=== PATIENT | female | born 1990 | race Caucasian/White ===

== ENCOUNTER 2019-04-26 14:35 | Inpatient (IN) | payer OTHER ==
[~2019-04-26] VITALS: Ht 162.6 cm; Wt 61.7 kg
--- NOTE | 2019-04-26 15:00 | NUR ---
[id number], from home, hyperventilating, anxious, took lorazepam 1 mg 30mins BUFFER CHROME and not helping per patient. PT AAOX4, VSS. RR EVEN & UNLABORED. DENIES CP, SOB, DIZZINESS, N/V @ THIS TIME. AWAITING EVAL BY ERMD & WILL CONT TO MONITOR.
[2019-04-26] MEDS ORDERED: LORAZEPAM INJ 2 MG/ML VIAL IV ONE (16:30)
[2019-04-26] MEDS ORDERED: LORAZEPAM INJ 2 MG/ML VIAL ONE (16:32)
--- NOTE | 2019-04-26 16:45 | NUR ---
MEDICATED ORDERED PER ERMD ORDER, PT TERRY WELL. WARDROBE COORDINATOR @ BS FOR EVAL.
--- NOTE | 2019-04-26 18:20 | NUR ---
PT SITTING UP ON HER LAPTOP RR EVEN & UNLABORED. DENIES CP, SOB, DIZZINESS, N/V @ THIS TIME & WILL CONT TO MONITOR.
[2019-04-26] MEDS ORDERED: CT SWABBABLE VALVE TRANS SET 1 EA INFUS.SET MC ONE (19:29)
[2019-04-26] MEDS ORDERED: IOHEXOL-350 100 ML VIAL IV ONE (19:29)
[2019-04-26] MEDS ORDERED: IV NS 0.9% 250 ML IV ONE (19:30)
[2019-04-26 19:49] LABS: CALCIUM, SERUM 9.3 mg/dL (8.5-10.1); CREATININE 0.7 mg/dL (0.6-1.3); POTASSIUM 3.8 mmol/L (3.5-5.1)
[2019-04-26 19:54] LABS: ALANINE AMINOTRANSFERASE 57 U/L (12-78); ALBUMIN 4.5 g/dL (3.4-5.0); ALKALINE PHOSPHATASE 73 U/L (46-116); ASPARTATE AMINOTRANSFERASE 23 U/L (15-37); BILIRUBIN,DIRECT 0.1 mg/dL (0.0-0.2); BILIRUBIN,TOTAL 0.5 mg/dL (0.2-1.0); TOTAL PROTEIN, SERUM 8.2 g/dL (6.4-8.2)
[2019-04-26 20:20] LABS: BASOPHILS # (AUTO) 0.1 /CMM (0.0-0.2); BASOPHILS % (AUTO) 0.8 % (0.0-2.0); HEMATOCRIT 44 % (33-45); HEMOGLOBIN 14.7 g/dL (11.5-14.8); LYMPHOCYTES # (AUTO) 2.2 /CMM (0.8-4.8); LYMPHOCYTES % (AUTO) 24.5 % (20.0-44.0); MEAN CORPUSCULAR HGB CONC 33 g/dl (31.0-36.0); MEAN CORPUSCULAR VOLUME 87 fL (82-100); MONOCYTES # (AUTO) 0.6 /CMM (0.1-1.30); MONOCYTES % (AUTO) 6.9 % (2.0-12.0); NEUTROPHILS % (AUTO) 66.8 % (43.0-81.0); PLATELET COUNT (AUTO) 290 /CMM (150-450); RED BLOOD CELL COUNT(AUTO) 5.09 MIL/uL (4.0-5.2)
[2019-04-26 21:05] LABS: APPEARANCE,URINE CLEAR (CLEAR); BILIRUBIN,URINE NEGATIVE (NEGATIVE); BLOOD, URINE NEGATIVE Ery/uL (NEGATIVE); COLOR,URINE YELLOW (YELLOW); KETONES,URINE 40 (NEGATIVE); LEUKOCYTE ESTERASE ,URINE NEGATIVE (NEGATIVE); NITRITE, URINE NEGATIVE (NEGATIVE); PH,URINE 7.5 (5.0-8.0); PROTEIN,URINE NEGATIVE (NEGATIVE); UGLUCOSE NEGATIVE (NEGATIVE); UROBILINOGEN,URINE 0.2 EU/dL (0.2)
[2019-04-26] MEDS ORDERED: ENOXAPARIN SODIUM 60 MG/0.6 ML DISP.SYRIN SQ ONE ×2 (22:57→23:00)
--- NOTE | 2019-04-26 23:00 | NUR ---
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
[2019-04-26 23:30] VITALS: BP 143/98
[2019-04-27] VITALS: BP 143/98
[2019-04-27] MEDS ORDERED: ACETAMINOPHEN 325 MG TABLET PO PRN
[2019-04-27] MEDS ORDERED: ZOLPIDEM TARTRATE 5 MG TABLET PO PRN
[2019-04-27] MEDS ORDERED: MAG HYDROX/AL HYDROX/SIMETH 30 ML UDC PO PRN
[2019-04-27] MEDS ORDERED: HYDROCODONE/APAP 5/325MG 1 EACH TABLET PO PRN
[2019-04-27] MEDS ORDERED: ONDANSETRON HCL/PF 4 MG/2 ML VIAL IVP PRN
[2019-04-27] MEDS ORDERED: Z GUARD REMEDY 2 OZ OINT TP PRN
[2019-04-27] MEDS ORDERED: MAGNESIUM HYDROXIDE 30 ML UDC PO PRN
--- NOTE | 2019-04-27 01:43 | NUR ---
MS RN NOTES C/O INSOMNIA,AMBUEN 5MG PO GIVEN ORDERED PRN FOR SLEEP.
[2019-04-27] MEDS ORDERED: AMPH20TA3 PO (03:19)
[2019-04-27] MEDS ORDERED: LORA-259 PO (03:19)
[2019-04-27] MEDS ORDERED: VENL75CA56 PO (03:19)
[2019-04-27] MEDS ORDERED: MIRT30TA7 PO (03:19)
--- NOTE | 2019-04-27 06:51 | NUR ---
MS RN NOTES FAIRLY RESTED,SLEPT WELL WITH AMBIEN,NO COMPLAINTS OF PAIN.IN NO ACUTE DISTRESS.WILL ENDORSE TO DAY NURSE FOR TYRELL.
[2019-04-27 07:27] LABS: BASOPHILS # (AUTO) 0.1 /CMM (0.0-0.2); BASOPHILS % (AUTO) 0.6 % (0.0-2.0); HEMATOCRIT 43 % (33-45); HEMOGLOBIN 14.6 g/dL (11.5-14.8); LYMPHOCYTES # (AUTO) 3.5 /CMM (0.8-4.8); LYMPHOCYTES % (AUTO) 39.7 % (20.0-44.0); MEAN CORPUSCULAR HGB CONC 34 g/dl (31.0-36.0); MEAN CORPUSCULAR VOLUME 86 fL (82-100); MONOCYTES % (AUTO) 11.1 % (2.0-12.0); NEUTROPHILS # (AUTO) 4.1 /CMM (1.8-8.9); NEUTROPHILS % (AUTO) 46.6 % (43.0-81.0); PLATELET COUNT (AUTO) 255 /CMM (150-450); RED BLOOD CELL COUNT(AUTO) 5.04 MIL/uL (4.0-5.2); WHITE BLOOD COUNT (AUTO) 8.8 K/uL (4.3-11.0)
[2019-04-27 07:43] LABS: CALCIUM, SERUM 8.9 mg/dL (8.5-10.1); CREATININE 0.9 mg/dL (0.6-1.3); MAGNESIUM 2.1 mg/dL (1.8-2.4); PHOSPHORUS 4.8 mg/dL (2.5-4.9); POTASSIUM 4.1 mmol/L (3.5-5.1)
[2019-04-27 08:00] VITALS: BP 141/91
--- NOTE | 2019-04-27 08:00 | NUR ---
MS RN OPENING NOTES Received Patient awake and resting in bed. A/O x 4. VS stable with no acute distress. Breathing even and unlabored on room air with no respiratory distress. Denies pain. 20g PIV on LAC clean and intact. Patient stated mild discomfort at site. Will continue to monitor. Safety precautions in place. Bed locked and set to lowest position with side rails x 2 up. All needs rendered at this time. Call light within reach. Will continue to monitor.
[2019-04-27] MEDS: ALBUTEROL HALF STRENGTH 1.25 MG/3 ML VIAL.NEB NEB SCH ×4 (08:33→20:12)
[2019-04-27] MEDS: APIXABAN 5 MG TABLET PO SCH ×2 (09:06→16:58)
--- NOTE | 2019-04-27 14:17 | NUR ---
MS RN NOTES Patient stated that she is feeling anxious and requesting medication for anxiety. Notified Evita ALBERTS. Per MD, order Xanax 0.25mg PO BID. Order noted and carried out. Will continue to monitor.
[2019-04-27] MEDS: ALPRAZOLAM 0.25 MG TABLET PO SCH ×2 (14:45→16:57)
[2019-04-27 16:00] VITALS: BP 129/89
[2019-04-27 17:42] LABS: IRON, SERUM 142 ug/dl (50-175); TOTAL IRON BINDING CAPACITY 411 ug/dl (250-450)
[2019-04-27 17:58] LABS: FERRITIN 29 ng/mL (8-388)
--- NOTE | 2019-04-27 18:58 | NUR ---
MS RN CLOSING NOTES Patient asleep and resting in bed. A/O x 4. VS stable with no acute distress. Breathing even and unlabored on room air with no respiratory distress. Denies pain. 20g PIV on LAC clean and intact. Safety precautions in place. Bed locked and set to lowest position with side rails x 2 up. All needs rendered at this time. Call light within reach. Will endorse plan of care to oncoming shift.
--- NOTE | 2019-04-27 19:58 | NUR ---
MS RN OPENING NOTES Patient is currently resting in bed comfortable, a/o x4. Stable on room air breathing equal and uneven. No apparent distress noted. No complaints of discomfort or pain. IV located on L AC saline lock. Safety precautions in place with bed in lowest position, side rails up x2, breaks on, and call light within reach. Will continue to monitor.
[2019-04-27 20:00] VITALS: BP 124/68
--- NOTE | 2019-04-28 06:34 | NUR ---
MS RN CLOSING NOTES Patiently is currently resting in bed a/o x4, able to make needs known. She is ambulatory, no sign fo acute distress noted, and no complaints of pain or discomfort throughout the night. IV located on L AC #20 SL. Safety precautions in place with bed in lowest position, breaks on, and call light within reach. Will endorse to oncoming shift about TYRELL.
--- NOTE | 2019-04-28 07:47 | NUR ---
MS RN OPENING NOTES Received Patient asleep and resting in bed. A/O x 4. VS stable with no acute distress. Breathing even and unlabored on room air with no respiratory distress. Denies pain. 20g PIV on LAC clean and intact. Safety precautions in place. Bed locked and set to lowest position with side rails x 2 up. All needs rendered at this time. Call light within reach. Will continue to monitor.
[2019-04-28 08:00] VITALS: BP 134/92
[2019-04-28] MEDS: ALBUTEROL HALF STRENGTH 1.25 MG/3 ML VIAL.NEB NEB SCH ×2 (08:40→12:38)
[2019-04-28] MEDS ORDERED: APIX5TAB PO (08:55)
[2019-04-28] MEDS: ALPRAZOLAM 0.25 MG TABLET PO SCH (09:01)
[2019-04-28] MEDS: APIXABAN 5 MG TABLET PO SCH (09:02)
--- NOTE | 2019-04-28 12:16 | NUR ---
MS EXPLOSIVE ORDNANCE TECHNICIAN NOTES Patient discharged for home at this time. Patient in stable condition. VS stable with no acute distress. Breathing even and unlabored on room air with no respiratory distress. Denies pain. Skin intact. Medication reconciliation and discharge orders reviewed and explained to Patient. Patient verbalized understanding. All belongings with Patient. Patient will follow up with primary MD. Escorted Patient to the Lobby for safety. Patient picked up by Friend.
[2019-04-29 10:07] LABS: *CARD ANTI-CARDIOLIPIN AB IgG <9 GPL U/mL (0-14); *CARD ANTI-CARDIOLIPIN AB IgM <9 MPL U/mL (0-12)
[2019-04-29 13:06] LABS: *ANTITHROMBIN III AG 84 % (72-124); *DILUTE PROTHROMBIN TIME (dPT) 44.4 sec (0.0-55.0); *THROMBIN TIME 20.4 sec (0.0-23.0); *dPT CONFIRM RATIO 0.96 Ratio (0.00-1.40); *dRVVT 37.4 sec (0.0-47.0); PROTEIN C ACTIVITY 97 % (73-180)
[2019-05-02 15:08] LABS: *FACTOR II, DNA ANALYSIS Negative (.)
== END 2019-04-28 12:00 | disposition home or self-care (01) | DRG 197 ==
LOC: ER 14:37 → TELE 23:05 → MED 04-27 02:43
PROVIDERS: ADMIT Hospitalist; ATTEND Internal Medicine
DX: I82.A12 Acute embolism and thrombosis of left axillary vein (principal); D68.59 Other primary thrombophilia; E61.1 Iron deficiency; F41.9 Anxiety disorder, unspecified; I10 Essential (primary) hypertension; R00.0 Tachycardia, unspecified; Z86.718 Personal history of other venous thrombosis and embolism
CPT/HCPCS: 36415; 76536-TC; 80048-TC; 80061-TC; 80076-TC; 81000-TC; 81240; 81241; 82728-TC; 83090; 83540-TC; 83735-TC; 84100-TC; 84439-TC; 84443-TC; 84481; 84484-TC; 84703-TC; 85025-TC; 85300; 85301; 85303; 85613; 85670; 85705; 85730-TC; 85732; 86147; 87081-TC; 93307-TC; G0378; J1650; J2060; J7050; Q9967